=== PATIENT | female | born 1955 | race Caucasian/White ===

== ENCOUNTER 2022-10-11 16:23 | Outpatient (CLI) | payer MEDICARE | END 2022-10-11 16:24 | disposition home or self-care (01) | LOC: CSHRAD 16:23 | PROVIDERS: ATTEND Nurse Practitioner Family | DX: M54.2 Cervicalgia (principal); M47.812 Spondylosis without myelopathy or radiculopathy, cervical region | CPT/HCPCS: 72040 ==

== ENCOUNTER 2023-05-05 14:35 | Emergency (ER) | payer MEDICARE ==
[~2023-05-05 14:35] MED LIST: Iopamidol 370 76% 100 ML VIAL ONE
[2023-05-05 15:34] LABS: #Monocytes 0.7 10x3/uL (0.0-1.1); #Neutrophils 6.7 10x3/uL (1.5-8.4); %Basophils 0.2 % (0.0-2.0); %Eosinophils 0.1 % (0.0-6.0); %Lymphocytes 17.3 % (18.0-47.0); %Monocytes 7.4 % (0.0-10.0); %Neutrophils 74.8 % (40.0-75.0); Hematocrit 46.8 % (34.9-44.5); Hemoglobin 14.9 g/dL (12.0-15.5); Mean Corpuscular HGB CONC 31.8 g/dL (32.0-36.0); Mean Corpuscular Hemoglobin 28.5 pg (27.0-33.0); Mean Corpuscular Volume 89.7 fl (81.6-98.3); Mean Platelet Volume 9.9 fl (7.4-10.4); Platelet Count 207 10x3/uL (150-450); RBC Distribution Width 13.2 % (11.5-14.5); Red Blood Cell (RBC) Count 5.22 10x6/uL (3.90-5.03); White Blood Cell (WBC) Count 8.9 10x3/uL (3.5-10.5)
[2023-05-05 15:44] LABS: ALT (SGPT) 35 U/L (8-55); AST (SGOT) 46 U/L (5-34); Albumin 4.9 g/dL (3.4-4.8); Alkaline Phosphatase 94 U/L (40-110); Anion Gap 19 mmol/L (10-20); BUN (Urea Nitrogen) 7 mg/dL (9.8-20.1); Bilirubin, Total 0.6 mg/dL (0.2-1.2); Calc. Creatinine Clearance 0 mL/min (70-130); Calcium 9.6 mg/dL (7.8-10.44); Carbon Dioxide 25 mmol/L (23-31); Chloride 100 mmol/L (98-107); Estimated GFR 91; Glucose 107 mg/dL (80-115); Potassium 3.6 mmol/L (3.5-5.1); Protein, Total 7.9 g/dL (5.8-8.1); Sodium 140 mmol/L (136-145)
[2023-05-05 15:47] LABS: Troponin I Less than 0.010 ng/mL (< 0.028)
== END 2023-05-05 17:22 | disposition home or self-care (01) ==
LOC: CSHERS 14:35
DX: U07.1 COVID-19 (principal)
CPT/HCPCS: 71045; 71275; 80053; 84484; 85025; 93005; 96360; 96361; Q9967

== ENCOUNTER 2023-11-11 15:09 | Outpatient (CLI) | payer OTHER | END 2023-11-11 15:10 | disposition home or self-care (01) | LOC: CSHMRI 15:09 | PROVIDERS: ATTEND Orthopaedic Surgery Hand Surgery | DX: M67.431 Ganglion, right wrist (principal); S63.591A Other specified sprain of right wrist, initial encounter ==

== ENCOUNTER 2023-12-12 10:46 | Outpatient (CLI) | payer OTHER | END 2023-12-12 10:47 | disposition home or self-care (01) | LOC: CSHMAMMO 10:46 | PROVIDERS: ATTEND Family Medicine | DX: Z12.31 Encounter for screening mammogram for malignant neoplasm of breast (principal); Z90.11 Acquired absence of right breast and nipple; Z98.82 Breast implant status | CPT/HCPCS: 77063; 77067 ==

== ENCOUNTER 2024-07-02 15:20 | Emergency (ER) | payer OTHER ==
[2024-07-02] MEDS ORDERED: Ketorolac Tromethamine 30 MG (1 mL) VIAL ONE (15:54)
[2024-07-02] MEDS ORDERED: HYDROcodone/Acetaminophen 5/325 mg Tablet ONE (15:54)
== END 2024-07-02 17:15 | disposition home or self-care (01) ==
LOC: CSHERS 15:20
DX: S22.32XA Fracture of one rib, left side, initial encounter for closed fracture (principal); S70.02XA Contusion of left hip, initial encounter; W19.XXXA Unspecified fall, initial encounter
CPT/HCPCS: 71100; 73502; 96372; 99283; J1885